=== PATIENT | female | born 1935 | race African-American/Black ===

== ENCOUNTER 2024-04-13 07:49 | Inpatient (IN) | payer MEDICARE ==
[~2024-04-13] VITALS: Ht 162.6 cm; Wt 77.1 kg
[2024-04-13 08:37] LABS: BASOPHILS % 0.3 % (0.0-2.0); EOSINOPHILS % 0.1 % (0.0-5.0); HEMATOCRIT. 33.3 % (36.0-48.0); HEMOGLOBIN. 10.8 g/dL (12.0-16.0); LYMPHOCYTES % 7.8 % (20.0-50.0); MEAN CORPUSCULAR HEMOGLOBIN 26.2 pg (28.0-32.0); MEAN CORPUSCULAR HGB CONC 32.3 g/dL (31.0-37.0); MEAN CORPUSCULAR VOLUME 81.1 fL (81.0-99.0); MEAN PLATELET VOLUME 9.5 fl (7.4-10.4); MONOCYTES % 7.8 % (2.0-8.0); PLATELET 281 x1000/uL (130-400); RED BLOOD CELL COUNT 4.11 mill/uL (4.2-5.4); RED CELL DISTRIBUTION WIDTH 18.2 % (11.6-14.6); WHITE BLOOD COUNT 10.1 x1000/uL (4.5-11.0)
[2024-04-13 08:54] LABS: INR 2.2; PROTHROMBIN TIME 23.2 sec (9.6-11.0)
[2024-04-13 08:57] LABS: CHLORIDE 107 mEq/L (98-107); POTASSIUM 3.4 mEq/L (3.5-5.1); SODIUM 139 mEq/L (136-145)
[2024-04-13 08:58] LABS: CALCIUM 9.3 mg/dL (8.7-10.4); CARBON DIOXIDE 27 mEq/L (21-32)
[2024-04-13 09:03] LABS: CREATININE 0.9 mg/dL (0.6-1.0); GLUCOSE 132 mg/dL (70-105); UREA NITROGEN BLOOD 13 mg/dL (9-23)
[2024-04-13 09:04] LABS: TROPONIN I HIGH SENSITIVITY 26 ng/L (3.0-34)
[2024-04-13] MEDS: FUROSEMIDE 40MG/4ML VIAL IVP SCH ×2 (09:25→12:20)
[2024-04-13] MEDS ORDERED: DOCUSATE SODIUM 100MG CAPSULE PO PRN (11:00)
[2024-04-13] MEDS ORDERED: ONDANSETRON HCL 4MG/2ML INJ IV PRN (11:00)
[2024-04-13] MEDS ORDERED: GUAIFENESIN 200MG/10ML SUGAR FREE UDC PO PRN (11:00)
[2024-04-13] MEDS ORDERED: ACETAMINOPHEN 325MG TABLET PO PRN ×2 (11:00)
[2024-04-13] MEDS ORDERED: IPRATROPIUM/ALBUTEROL 0.5-3(2.5)MG/3ML NEB HHN PRN (11:00)
[2024-04-13] MEDS: PANTOPRAZOLE SODIUM 40 MG/VIAL IV SCH (12:20)
[2024-04-13] MEDS: LOSARTAN 50 MG TABLET PO SCH (12:20)
[2024-04-13] MEDS: POTASSIUM CHLORIDE 20MEQ/PACKET PO NR (12:20)
[2024-04-13] MEDS: ENOXAPARIN 40MG/0.4ML SYR SUBCUT SCH (12:36)
[2024-04-13 13:06] LABS: FOLIC ACID (FOLATE) SERUM > 20.00 ng/mL (>5.38); VITAMIN B12 SERUM 146 pg/mL (211-911)
[2024-04-13 13:19] LABS: IRON 25 ug/dL (50-170)
[2024-04-13 13:21] LABS: CREATINE KINASE 86 IU/L (34-145); PHOSPHORUS 3.4 mg/dL (2.5-4.9)
[2024-04-13 13:22] LABS: TOTAL IRON BINDING CAPACITY 310 ug/dl (250-425)
[2024-04-13] MEDS: BLOOD SUGAR DIAGNOSTIC STRIP TEST SCH (13:34)
[2024-04-13 13:36] LABS: TROPONIN I HIGH SENSITIVITY 40 ng/L (3.0-34)
[2024-04-13] MEDS: HYDRALAZINE 20MG/ML VIAL IV PRN (14:50)
[2024-04-13 16:45] LABS: TROPONIN I HIGH SENSITIVITY 36 ng/L (3.0-34)
[2024-04-13] MEDS: ISOSORBIDE MONONITRATE 30MG TABLET SR 24HR PO SCH (18:01)
[2024-04-13 22:00] VITALS: BP 170/56; PULSE 79; RESP 18; TEMP 37.2252; TEMP 37.252; O2SAT 100
[2024-04-13] MEDS: ATORVASTATIN CALCIUM 20MG TABLET PO SCH (23:18)
[2024-04-13] MEDS: CLONIDINE 0.2MG TABLET PO PRN (23:19)
[2024-04-13] MEDS: ENOXAPARIN 80MG/0.8ML SYR SUBCUT SCH (23:20)
[2024-04-14 00:01] VITALS: PULSE 75
[2024-04-14 00:06] VITALS: BP 171/62; PULSE 122; RESP 19; TEMP 36.44736; O2SAT 96
[2024-04-14 04:00] VITALS: BP 114/60; PULSE 89; RESP 18; TEMP 36.6696; O2SAT 99
[2024-04-14 06:31] LABS: BASOPHILS % 0.3 % (0.0-2.0); EOSINOPHILS % 0.5 % (0.0-5.0); HEMATOCRIT. 32.2 % (36.0-48.0); HEMOGLOBIN. 10.7 g/dL (12.0-16.0); LYMPHOCYTES % 18.4 % (20.0-50.0); MEAN CORPUSCULAR HEMOGLOBIN 26.8 pg (28.0-32.0); MEAN CORPUSCULAR HGB CONC 33.1 g/dL (31.0-37.0); MEAN CORPUSCULAR VOLUME 80.9 fL (81.0-99.0); MEAN PLATELET VOLUME 10.3 fl (7.4-10.4); NEUTROPHILS % 68.8 % (40.0-76.0); PLATELET 255 x1000/uL (130-400); RED BLOOD CELL COUNT 3.98 mill/uL (4.2-5.4)
[2024-04-14 06:45] LABS: CALCIUM 9.4 mg/dL (8.7-10.4); POTASSIUM 3.4 mEq/L (3.5-5.1)
[2024-04-14 06:51] LABS: CREATININE 1.1 mg/dL (0.6-1.0)
[2024-04-14 06:54] LABS: THYROID STIMULATING HORMONE 1.37 uIU/mL (0.55-4.78)
[2024-04-14 08:00] VITALS: BP 114/60; PULSE 78; RESP 18; TEMP 36.6696; TEMP 36.66960; O2SAT 96
[2024-04-14 08:04] LABS: TROPONIN I HIGH SENSITIVITY 35 ng/L (3.0-34)
[2024-04-14 11:07] VITALS: BP 113/59; PULSE 75; TEMP 98; O2SAT 95
[2024-04-15] MEDS ORDERED: ENOXAPARIN 80MG/0.8ML SYR SUBCUT SCH (09:00)
== END 2024-04-14 15:24 | disposition home or self-care (01) | DRG 291 ==
LOC: ER 07:57 → EDBEDREQ 09:03 → EDBEDREQTM 09:03 → 8WST 21:12
PROVIDERS: ADMIT Internal Medicine; ATTEND Internal Medicine
DX: I11.0 Hypertensive heart disease with heart failure (principal); I50.43 Acute on chronic combined systolic (congestive) and diastolic (congestive) heart failure; I16.1 Hypertensive emergency; I48.91 Unspecified atrial fibrillation; I44.7 Left bundle-branch block, unspecified; E87.6 Hypokalemia; D64.9 Anemia, unspecified; E66.9 Obesity, unspecified; Z79.01 Long term (current) use of anticoagulants; Z79.899 Other long term (current) drug therapy; Z68.29 Body mass index [BMI] 29.0-29.9, adult
CPT/HCPCS: 36415; 71045; 80048; 80061; 82550; 82607; 82746; 82962; 83036; 83540; 83550; 83605; 83735; 83880; 84100; 84145; 84443; 84484; 85025; 85379; 93005; 93970; 99291; J0360; J1650; J1940; J2470